=== PATIENT | female | born 1960 | race Caucasian/White ===

== ENCOUNTER 2018-01-06 22:13 | Emergency (ER) | payer OTHER ==
[2018-01-06] MEDS ORDERED: Sodium Chloride 0.9% 10 ML Syringe FLUSH PRN (22:31)
[2018-01-06] MEDS ORDERED: Ondansetron 4 MG/2 ML SDV IVPUSH ONE (22:31)
[2018-01-06] MEDS ORDERED: Ketorolac 30 MG/ML SDV IVPUSH ONE (22:33)
[2018-01-06] MEDS ORDERED: HYDROmorphone 0.5 MG/0.5 ML SYRINGE IVPUSH ONE (22:33)
[2018-01-06] MEDS ORDERED: Sodium Chloride 0.9% 1,000 ML IV SCH (22:45)
--- NOTE | 2018-01-06 23:21 | EDM.PDOC ---
ED HPI GENERAL MEDICAL PROBLEM - General Chief Complaint: Abdominal Pain Stated Complaint: LEFT SIDE PAIN Time Seen by Provider: 01/06/18 22:26 Source of Information: Reports: Patient History Limitations: Reports: No Limitations - History of Present Illness INITIAL COMMENTS - FREE TEXT/NARRATIVE: The patient presents with left sided abdominal pain and flank pain. This started this afternoon. She has nausea and vomiting with it. She has chills but no fever. She has no dysuria or frequency but she is urinating small amounts. She never had a kidney stone before. She has no chest pain or shortness of breath. She still has an appendix and gallbladder. Onset: Sudden Duration: Hour(s): Location: Reports: Abdomen (left side to left flank) Quality: Reports: Sharp Severity: Severe Improves with: Reports: None Worsens with: Reports: None Associated Symptoms: Reports: Fever/Chills, Nausea/Vomiting. Denies: Chest Pain , Cough, Headaches, Shortness of Breath Left Abdomen Pain Score (Numeric/FACES): 10 - Related Data Allergies Allergy/AdvReac Type Severity Reaction Status Date / Time No Known Allergies Allergy Verified 01/06/18 22:23 Home Meds: Home Meds Docusate Sodium 100 mg PO DAILY PRN 01/06/18 [History] Furosemide 20 mg PO DAILY PRN 01/06/18 [History] Methylcellulose [Citrucel] 1 tab PO DAILY 01/06/18 [History] amLODIPine [Norvasc] 10 mg PO DAILY 01/06/18 [History] Past Medical History - Past Surgical History Oncologic Surgical History: Reports: Other (See Below) Other Oncologic Surgeries/Procedures: vulva cancer, lymph nodes removed Social & Family History - Tobacco Use Smoking Status *Q: Never Smoker - Caffeine Use Caffeine Use: Reports: Coffee - Recreational Drug Use Recreational Drug Use: No ED ROS GENERAL - Review of Systems Review Of Systems: See Below Constitutional: Reports: Chills. Denies: Fever HEENT: Reports: No Symptoms Respiratory: Reports: No Symptoms Cardiovascular: Reports: No Symptoms Endocrine: Reports: No Symptoms GI/Abdominal: Reports: Abdominal Pain, Nausea, Vomiting. Denies: Diarrhea : Reports: Flank Pain (left), Other (she is going smaller amounts). Denies: Dysuria, Frequency, Urgency Musculoskeletal: Reports: No Symptoms ED EXAM, GI/ABD - Physical Exam Exam: See Below Exam Limited By: No Limitations General Appearance: Alert, Moderate Distress Ears: Normal External Exam Nose: Normal Inspection Head: Atraumatic, Normocephalic Neck: Normal Inspection Respiratory/Chest: No Respiratory Distress, Lungs Clear, Normal Breath Sounds Cardiovascular: Regular Rate, Rhythm, No Edema, No Murmur GI/Abdominal Exam: Soft, Non-Tender, No Organomegaly, No Mass Back Exam: CVA Tenderness (L) (Mild) Extremities: Normal Inspection Neurological: Alert, Oriented, No Motor/Sensory Deficits Course - Vital Signs Last Recorded V/S: Last Vital Signs Temp 97 F 01/06/18 22:17 Pulse 110 H 01/06/18 22:17 Resp 20 01/06/18 22:17 BP 146/113 H 01/06/18 22:17 Pulse Ox 99 01/06/18 22:17 - Orders/Labs/Meds Orders: Active Orders 24 hr Category Date Time Status Peripheral IV Care [RC] . DIRECTED Care 01/06/18 22:32 Active Abdomen Pelvis wo Cont [CT] Stat Exams 01/06/18 22:31 Taken Sodium Chloride 0.9% [Normal Saline] 1,000 ml Med 01/06/18 22:45 Active IV ASDIRECTED Sodium Chloride 0.9% [Saline Flush] Med 01/06/18 22:31 Active 10 ml FLUSH ASDIRECTED PRN ED Antiemetic Medication Reflex [OM.PC] Stat Oth 01/06/18 22:32 Ordered Peripheral IV Insertion Adult [OM.PC] Stat Oth 01/06/18 22:31 Ordered Medication Orders Sodium Chloride (Normal Saline) 1,000 mls @ 125 mls/hr IV ASDIRECTED XENIA Last Admin: 01/06/18 22:47 Dose: 125 mls/hr Sodium Chloride (Saline Flush) 10 ml FLUSH ASDIRECTED PRN PRN Reason: Keep Vein Open Last Admin: 01/06/18 22:47 Dose: 10 ml Labs: Laboratory Tests 01/06/18 01/06/18 01/06/18 Range/Units 22:30 22:30 22:48 WBC 18.72 H (3.98-10.04) K/mm3 RBC 5.05 (3.98-5.22) M/mm3 Hgb 14.9 (11.2-15.7) gm/L Hct 45.1 H (34.1-44.9) % MCV 89.3 (79.4-94.8) fl MCH 29.5 (25.6-32.2) pg MCHC 33.0 (32.2-35.5) g/dl RDW Std Deviation 43.6 (36.4-46.3) fL Plt Count 408 H (182-369) K/mm3 MPV 9.3 L (9.4-12.3) fl Neut % (Auto) 93.3 H (34.0-71.1) % Lymph % (Auto) 3.5 L (19.3-51.7) % Mills % (Auto) 2.7 L (4.7-12.5) % Eos % (Auto) 0.1 L (0.7-5.8) Baso % (Auto) 0.1 (0.1-1.2) % Neut # (Auto) 17.49 H (1.56-6.13) K/mm3 Lymph # (Auto) 0.65 L (1.18-3.74) K/mm3 Mills # (Auto) 0.50 H (0.24-0.36) K/mm3 Eos # (Auto) 0.01 L (0.04-0.36) K/mm3 Baso # (Auto) 0.02 (0.01-0.08) K/mm3 Manual Slide Review Abnormal smear Sodium 140 (136-145) mEq/L Potassium 4.6 (3.5-5.1) mEq/L Chloride 102 (98-107) mEq/L Carbon Dioxide 25 (21-32) mEq/L Anion Gap 17.6 H (5-15) BUN 15 (7-18) mg/dL Creatinine 1.3 H (0.55-1.02) mg/dL Est Cr Clr Drug Dosing 41.93 mL/min Estimated GFR (MDRD) 42 (>60) mL/min BUN/Creatinine Ratio 11.5 L (14-18) Glucose 167 H (74-106) mg/dL Calcium 10.3 H (8.5-10.1) mg/dL Total Bilirubin 0.6 (0.2-1.0) mg/dL AST 20 (15-37) U/L ALT 23 (14-59) U/L Alkaline Phosphatase 131 H (46-116) U/L Total Protein 8.7 H (6.4-8.2) g/dl Albumin 4.3 (3.4-5.0) g/dl Globulin 4.4 gm/dL Albumin/Globulin Ratio 1.0 (1-2) Lipase 112 (73-393) U/L Urine Color Yellow (Yellow) Urine Appearance Clear (Clear) Urine pH 6.5 (5.0-8.0) Ur Specific [place] 1.020 (1.005-1.030) Urine Protein Negative (Negative) Urine Glucose (UA) Negative (Negative) Urine Ketones Negative (Negative) Urine Occult Blood 2+ H (Negative) Urine Nitrite Negative (Negative) Urine Bilirubin Negative (Negative) Urine Urobilinogen 0.2 (0.2-1.0) Ur Leukocyte Esterase 1+ H (Negative) Urine RBC 5-10 H (0-5) /hpf Urine WBC 5-10 H (0-5) /hpf Ur Epithelial Cells 0-5 (0-5) /hpf Urine Bacteria Few (FEW) /hpf Urine Mucus Few (FEW) /hpf Meds: Medications Generic Name Dose Route Start Last Admin Trade Name Freq PRN Reason Stop Dose Admin Sodium Chloride 1,000 mls @ 125 mls/hr 01/06/18 22:45 01/06/18 22:47 Normal Saline IV 125 mls/hr ASDIRECTED XENIA Administration Sodium Chloride 10 ml 01/06/18 22:31 01/06/18 22:47 Saline Flush FLUSH 10 ml ASDIRECTED PRN Administration Keep Vein Open Discontinued Medications Generic Name Dose Route Start Last Admin Trade Name Freq PRN Reason Stop Dose Admin Hydromorphone HCl 0.5 mg 01/06/18 22:33 01/06/18 22:47 Dilaudid IVPUSH 01/06/18 22:34 0.5 mg ONETIME ONE Administration Ketorolac Tromethamine 30 mg 01/06/18 22:33 01/06/18 22:49 Toradol IVPUSH 01/06/18 22:34 30 mg ONETIME ONE Administration Ondansetron HCl 4 mg 01/06/18 22:31 01/06/18 22:47 Zofran IVPUSH 01/06/18 22:32 4 mg ONETIME ONE Administration - Re-Assessments/Exams Free Text/Narrative Re-Assessment/Exam: 01/06/18 23:20 I ordered an IV NS at 125mL/hr, zofran 4mg IV, dilaudid 0.5mg IV, toradol 30mg IV, labs, UA and a CT of her abdomen and pelvis without contrast to look for a kidney stone. 01/07/18 00:36 Her WBC was elevated at 18.72. Her platelets were elevated at 408. Her anion gap was elevated at 17.6. Her creatinine was elevated at 1.3. Her GFR was low at 42. Her glucose was elevated at 167. Her UA shows 1+ leukocyte esteras, 5- 10 RBCs and 5-[address]. [address] shows an 8mm stone in the distal right ureter causes severe hydronephrosis. 2 adjacent 6mm stones in the proximal left ureter causes severe hydronpehrosis and perinephric stranding. I called [facility] in [place] and talked with Dr Neumann and he wanted the patient sent there. He will have to stent her in the morning. He wanted a urine culture and zosyn IV and NPO. I also talked with Dr Novak and she accepted the patient. She is the hospitalist product distribution specialist. Departure - Departure Time of Disposition: 00:55 Disposition: DC/Tfer to Acute Hospital 02 Condition: Fair Clinical Impression: Bilateral kidney stones, Renal insufficiency - Discharge Information *PRESCRIPTION DRUG MONITORING PROGRAM REVIEWED*: No *COPY OF PRESCRIPTION DRUG MONITORING REPORT IN PATIENT GONZALES: No Referrals: PCP,Not In Area [Primary Care Provider] - Forms: ED Department Discharge - My Orders Last 24 Hours: My Active Orders 01/06/18 22:31 Abdomen Pelvis wo Cont [CT] Stat Sodium Chloride 0.9% [Saline Flush] 10 ml FLUSH ASDIRECTED PRN Peripheral IV Insertion Adult [OM.PC] Stat 01/06/18 22:32 Peripheral IV Care [RC] . DIRECTED ED Antiemetic Medication Reflex [OM.PC] Stat 01/06/18 22:45 Sodium Chloride 0.9% [Normal Saline] 1,000 ml IV ASDIRECTED - Assessment/Plan Last 24 Hours: My Active Orders 01/06/18 22:31 Abdomen Pelvis wo Cont [CT] Stat Sodium Chloride 0.9% [Saline Flush] 10 ml FLUSH ASDIRECTED PRN Peripheral IV Insertion Adult [OM.PC] Stat 01/06/18 22:32 Peripheral IV Care [RC] . DIRECTED ED Antiemetic Medication Reflex [OM.PC] Stat 01/06/18 22:45 Sodium Chloride 0.9% [Normal Saline] 1,000 ml IV ASDIRECTED
[2018-01-07] MEDS ORDERED: Piperacillin/Tazobactam 4.5 GM in Sodium Chloride 0.9% 100 ML IV ONE (00:43)
[2018-01-07] MEDS ORDERED: HYDROmorphone 0.5 MG/0.5 ML SYRINGE IVPUSH ONE (00:44)
--- NOTE | 2018-01-07 10:28 | CT ---
CT abdomen and pelvis Technique: Multiple axial sections were obtained from above the dome of the diaphragm inferiorly through the pubic symphysis. Intravenous and oral contrast was not utilized. Study has been performed as a ureteral stone protocol. Comparison: No previous CT abdomen or pelvis exam. Findings: Dilated right ureter is seen. Findings are caused by a distal right ureteral stone measuring about 9 mm in size. 8 mm stone noted at the left UPJ causing proximal hydronephrosis of the left kidney. Surrounding inflammatory change around the left kidney is seen compatible with the obstruction. No other abnormal calcifications are seen along the course of the ureters. No abnormal calcifications are identified within the kidneys. Visualized lung bases show nothing acute. Noncontrast appearance of the liver appears within normal limits. Gallbladder contains no calcified gallstones. Spleen appears normal in size. Minimal hiatal hernia is noted. Right adrenal mass is seen and this adrenal mass measures approximately 3.7 cm in size and is most likely due to adrenal adenoma although MRI will be recommended to confirm. Left adrenal gland is unremarkable. Pancreas is normal. Aorta shows atherosclerotic change without aneurysm. Appendix is seen which is normal in size. No pelvic mass or adenopathy is seen. Incidental calcified uterine fibroid is seen measuring 3.0 cm in size. Bone window settings were reviewed which show mild scoliosis within the spine with scattered degenerative change. Impression: 1. Distal right obstructing ureteral stone measuring 9 mm. Proximal obstructing left ureteral stone at the UPJ measuring 8 mm. 2. Right adrenal mass most likely due to benign adrenal adenoma although MRI is recommended to confirm. This finding was not mentioned on preliminary report by [facility]. 3. Other incidental findings as noted above. Diagnostic code #3 I mostly with preliminary report from [facility], (additional finding of right adrenal mass for which MRI has been recommended) finalized on 01/07/18, 1:11 AM Central Time (code #2)
== END 2018-01-07 01:30 ==
LOC: JD.ED 22:13
DX: N13.2 Hydronephrosis with renal and ureteral calculous obstruction (principal); N28.9 Disorder of kidney and ureter, unspecified
CPT/HCPCS: 36415; 74176; 80053; 81001; 83690; 85025; 87086; 96361; 96365; 96375; 96376; 99285; J1170; J1885; J2405; J2543; J7030; J7040; J7050; 99284